=== PATIENT | male | born 1970 | race Hispanic/Latino ===

== ENCOUNTER 2018-04-05 08:02 | Emergency (ER) | payer BC ==
[~2018-04-05] VITALS: Ht 170.2 cm; Wt 86.2 kg
--- OUTSIDE RECORDS SUMMARY | 2018-04-05 08:15 | XMS REPORT | Summary of Care ---
Author Author Elizabeth Spears Organization Unknown Address [facility] Phone Unavailable Care Team Providers Care Lime Vat Tender Name Role Phone RENALDO MA M.D. Unavailable Unavailable Elizabeth Spears Unavailable Unavailable DEMETRIO IBARRA ME, JOVANNI MALDONADO Unavailable Unavailable DEMETRIO Velasquez, JOVANNI Oliva Unavailable Unavailable Unavailable Functional Status Name Dates Details Functional status health issues are not documented Status: Name Dates Details Cognitive status health issues are not documented Status: Problems Name Dates Details Influenza vaccine needed (V04.81, Z23) Status: Active Uncontrolled diabetes mellitus (250.02, E11.65) Status: Active Need for vaccination for Strep pneumoniae (V03.82, Z23) Status: Active Snoring (786.09, R06.83) Status: Active Snoring (786.09, R06.83) Status: Active Constipation (564.00, K59.00) Status: Active Abdominal bloating (787.3, R14.0) Status: Active Noncompliance with treatment (V15.81, Z91.19) Status: Active Acid reflux (530.81, K21.9) Status: Active History of Smoking trying to quit (305.1, Z72.0) Status: Resolved Other hyperlipidemia (272.4, E78.4) Status: Active Diabetes mellitus (250.00, E11.9) Status: Active Chest pain, atypical (786.59, R07.89) Status: Active Hyperlipidemia (272.4, E78.5) Status: Active Dyspnea on exertion (786.09, R06.09) Status: Active LEROY on CPAP (327.23, G47.33) Status: Active Medications Name Dates Details Atorvastatin Calcium 80 MG Oral Tablet TAKE 1 TABLET AT BEDTIME. Quantity: 30 FRANCESCA Velasquez, RENALDO * Start : 31-Oct-2013 Active Janumet XR 100-1000 MG Oral Tablet Extended Release 24 Hour 1 a day for diabetes * Quantity: 30 Refills: 4 RENALDO MA M.D. * Start : 31-Oct-2013 Active Prodigy No Coding Blood Gluc In Vitro Strip Check BG 1x a day * Refills: 0 RENALDO MA M.D. * Start : 24-Apr-2014 Active Glimepiride 1 MG Oral Tablet TAKE 1 TABLET BY MOUTH DAILY HOLD Starting 01-25-18 * Quantity: 30 Refills: 4 FRANCESCA Velasquez, RENALDO * Start : 20-Nov-2014 Active One Touch Ultra Test Strips Check BG 1 to 2x a day * Quantity: 100 Refills: 11 RENALDO MA M.D. * Start : 20-Nov-2014 Active OneTouch Delica Lancets Fine Check BG 1 to 2x a day * Quantity: 100 Refills: 4 RENALDO MA M.D. * Start : 20-Nov-2014 Active Vascepa 1 GM Oral Capsule 2 capsules twice a day * Quantity: 120 Refills: 4 RENALDO MA M.D. * Start : 03-Aug-2015 Active Jardiance 10 MG Oral Tablet 1 tablet every morning * Quantity: 30 Refills: 4 RENALDO MA M.D. * Start : 07-Jul-2016 Active OneTouch Verio In Vitro Strip CHECK 1 to 2 TIMES DAILY * Quantity: 1 Refills: 10 RENALDO MA M.D. * Start : 17-Oct-2016 Active 100 Strip Box Fenofibrate 48 MG Oral Tablet TAKE 1 TABLET DAILY With Food * Quantity: 30 Refills: 4 RENALDO MA M.D. * Start : 30-Jan-2017 Active Metamucil 0.52 GM Oral Capsule TAKE 1 CAPSULE DAILY * Refills: 0 * Start : 26-Feb-2018 Active Allergies and Adverse Reactions Name Dates Details No Known Drug Allergies (Allergy) Status: Active Past Medical History Name Dates Details Influenza vaccine needed (V04.81, Z23) Status: Active Need for vaccination for Strep pneumoniae (V03.82, Z23) Status: Active History of Diabetes mellitus (250.00, E11.9) Status: Resolved History of hiatal hernia (V12.79, Z87.19) Status: Resolved History of insomnia (V13.89, Z87.898) Status: Resolved Procedures Procedure Dates Details [N] Plain Treadmill-Non Imaging Stress Test-Standard True Date: 26-Feb-2018 History of No history of surgery Completed Immunization Name Dates Details Pneumococcal polysaccharide vaccine, 23 valent Lot #: [id number] on: 15-Aug-2013 Fluzone INJ Lot #: [id number] on: 15-Aug-2013 Fluzone INJ Lot #: [id number] on: 03-Aug-2015 Family History Name Dates Details Family history of Reported Family History Of Heart Disease Comments: Family History Status: Active Family history of Diabetes Mellitus (V18.0) Comments: Family History Status: Active Family history of Coronary Artery Disease (V17.49) Comments: Family History Status: Active Name Dates Details Family history of Diabetes Mellitus (V18.0) Status: Active Name Dates Details Family history of Diabetes Mellitus (V18.0) Status: Active Family history of Coronary Artery Disease (V17.49) Status: Active Family history of myocardial infarction (V17.3, Z82.49) Status: Active Name Dates Details Family history of Diabetes Mellitus (V18.0) Status: Active Social History Name Dates Details - Status: Name Dates Details Smoker. current status unknown Former smoker Vital Signs Date Test Result Details [id number] BP Systolic 121 mm[Hg] Status: Comments: Location: LUE; Position: Standing BP Diastolic 77 mm[Hg] Status: Comments: Location: LUE; Position: Standing Height 67 in Status: Weight 190.5 lb Status: Body Mass Index Calculated 29.84 kg/m2 Status: Body Surface Area Calculated 1.98 m2 Status: Temperature 97.8 f Status: Comments: Method: Oral Heart Rate 97.8 /min Status: Results Date Description Value Details Results not documented Plan of Care Name Dates Details Planned Observations [N] Plain Treadmill-Non Imaging Stress Test-Standard True On: 23-Feb-2019 Intent Planned Goals not documented Planned Encounters Appointment; RENALDO MA M.D. On: 14-May-2018 10:00 Appointment; POLLY, STRESS On: 25-Feb-2019 13:00 Appointment; WEN AGUILA M.D. On: 25-Feb-2019 14:00 Instructions Name Dates Details Instructions not documented Encounters Appointment; LORETTA SHEN M.D. Encounter Diagnosis: Problem not documented On: 05-Mar-2016 10:15 Appointment; LORETTA SHEN M.D. Encounter Diagnosis: Problem not documented On: 02-Apr-2016 10:00 Appointment; LORETTA SHEN M.D. Encounter Diagnosis: Problem not documented On: 14-Apr-2016 10:15 Appointment; RENALDO MA M.D. Encounter Diagnosis: Problem not documented On: 07-Jul-2016 10:30 Appointment; RENALDO MA M.D. Encounter Diagnosis: Problem not documented On: 17-Oct-2016 10:00 Appointment; RENALDO MA M.D. Encounter Diagnosis: Problem not documented On: 30-Jan-2017 10:30 Appointment; WEN AGUILA M.D. Encounter Diagnosis: Problem not documented On: 24-Feb-2017 11:00 Appointment; WEN AGUILA M.D. Encounter Diagnosis: Problem not documented On: 06-Mar-2017 12:20 Appointment; RENALDO MA M.D. Encounter Diagnosis: Problem not documented On: 29-May-2017 10:30 Appointment; RENALDO MA M.D. Encounter Diagnosis: Problem not documented On: 07-Oct-2017 10:30 Appointment; RENALDO MA M.D. Encounter Diagnosis: Problem not documented On: 25-Jan-2018 10:00 [facility] Encounter Diagnosis: Problem not documented On: 26-Feb-2018 11:00 Appointment; WEN AGUILA M.D. Encounter Diagnosis: Problem not documented On: 26-Feb-2018 12:00
--- OUTSIDE RECORDS SUMMARY | 2018-04-05 08:15 | XMS REPORT | Clinical Summary ---
Author Author MARY [facility] Address Unknown Phone Unavailable Care Team Providers Care Cab Worker Name Role Phone PCP Unavailable Allergies No Known Allergies Current Medications Prescription Sig. Disp. Refills Start End Date Status Date sitaGLIPtin-metFORMIN Take 1 tablet by mouth 2 Active (JANUMET) 50-1,000 mg per (two) times daily with tablet breakfast and dinner. glimepiride (AMARYL) 1 MG Take 1 mg by mouth every Active tablet morning before breakfast. cyclobenzaprine Take 1 tablet (5 mg 15 tablet 0 02/21/20 Active (FLEXERIL) 5 MG tablet total) by mouth 3 (three) 16 times daily as needed for Muscle spasms for up to 15 doses. acetaminophen-codeine Take 1-2 tablets by mouth 25 tablet 0 02/21/20 Active (TYLENOL #3) 300-30 mg every 4 (four) hours as 16 per tablet needed for Pain for up to 25 doses. Active Problems Not on file Social History Tobacco Use Types Packs/Day Years Used Date Current Every Day Smoker Alcohol Use Drinks/Week oz/Week Comments Yes Sex Assigned at Date Recorded Not on file Last Filed Vital Signs Not on file Plan of Treatment Not on file Results Not on fileafter 04/04/2017
[2018-04-05] MEDS ORDERED: SODIUM CHLORIDE 0.9% 1000ML 1,000 ML IV STA (08:40)
[2018-04-05] MEDS ORDERED: PANTOPRAZOLE 40 MG 10ML VIAL IV STA (08:40)
[2018-04-05] MEDS ORDERED: METOCLOPRAMIDE HCL 10 MG/2ML VIAL IV NR (09:00)
--- NOTE | 2018-04-05 09:04 | Diagnostic Imaging Report ---
PROCEDURE:CHEST SINGLE (PORTABLE) TECHNIQUE:Portable AP chest INDICATION:Dizziness with nausea COMPARISON:None. FINDINGS: Lungs are clear and symmetrically inflated. No pleural effusions. Normal heart size, mediastinal contour, and pulmonary vasculature. Intact skeleton. CONCLUSION: Normal portable chest. Dictated by: Darryl Austin M.D. on 04/05/2018 at 9:08 Electronically approved by: Darryl Austin M.D. on 04/05/2018 at 9:08
[2018-04-05 09:08] LABS: BASOPHILS % 0.4 % (0.0-1.0); EOSINOPHILS # (AUTO) 0.1 (0.0-0.4); EOSINOPHILS % 1.9 % (0.0-6.0); HEMATOCRIT 49.5 % (38.2-49.6); HEMOGLOBIN 16.6 g/dL (14.0-18.0); LYMPHOCYTES # (AUTO) 1.3 (1.0-3.2); LYMPHOCYTES % 19.4 % (18.0-39.1); MEAN CORPUSCULAR HEMOGLOBIN 28.2 pg (28-32); MEAN CORPUSCULAR HGB CONC 33.5 g/dL (31-35); MEAN CORPUSCULAR VOLUME 84.2 fL (81-99); MONOCYTES # (AUTO) 0.5 (0.2-0.8); MONOCYTES % 6.9 % (4.4-11.3); NEUTROPHILS # (AUTO) 4.8 (2.1-6.9); PLATELET COUNT 133 x10e3/uL (140-360); RED BLOOD COUNT 5.88 x10e6/uL (4.3-5.7); RED CELL DISTRIBUTION WIDTH 13.5 % (11.7-14.4)
[2018-04-05 09:24] LABS: CLARITY,URINE CLEAR (CLEAR); COLOR,URINE YELLOW (YELLOW); LEUKOCYTE ESTERASE ,URINE NEGATIVE (NEGATIVE); NITRITE,URINE NEGATIVE (NEGATIVE); PROTEIN,URINE DIPSTICK TRACE (NEGATIVE)
[2018-04-05 09:25] LABS: BILIRUBIN,URINE NEGATIVE (NEGATIVE); KETONES,URINE NEGATIVE (NEGATIVE); URINE UROBILINOGEN 0.2 mg/dL (0.2 - 1)
[2018-04-05 09:26] LABS: ALANINE AMINOTRANSFERASE 29 IU/L (0-55); ALBUMIN 4.1 g/dL (3.5-5.0); ALBUMIN/GLOBULIN RATIO 1.2 (0.8-2.0); ALKALINE PHOSPHATASE 77 IU/L (40-150); AMYLASE 85 U/L (25-125); ANION GAP 10.2 mmol/L (8-16); BLOOD UREA NITROGEN 14 mg/dL (7-26); BUN/CREATININE RATIO 14 (6-25); CALCIUM 9.4 mg/dL (8.4-10.2); CARBON DIOXIDE 28 mmol/L (22-29); CHLORIDE 102 mmol/L (98-107); EST GLOMERULAR FILTRATION RATE > 60 ML/MIN (60-); GLUCOSE 181 mg/dL (74-118); LIPASE 20 U/L (8-78); MAGNESIUM 2.1 MG/DL (1.3-2.1); POTASSIUM 4.2 mmol/L (3.5-5.1); SODIUM 136 mmol/L (136-145)
[2018-04-05 09:32] LABS: BACTERIA,URINE RARE /HPF; MUCUS,URINE MODERATE (RARE); WBC,URINE (MAN) 0-5 /HPF (0-5)
[2018-04-05] MEDS ORDERED: VASCEPA PO (10:17)
[2018-04-05] MEDS ORDERED: JARDIANCE PO (10:17)
== END 2018-04-05 11:43 | disposition home or self-care (01) ==
LOC: ER 08:14
DX: R11.2 Nausea with vomiting, unspecified (principal); I10 Essential (primary) hypertension; E11.9 Type 2 diabetes mellitus without complications; Z79.84 Long term (current) use of oral hypoglycemic drugs
CPT/HCPCS: 36415; 71045; 80053; 81001; 82150; 83605; 83690; 83735; 85025; 93005; 99284; J2765; J7030